=== PATIENT | female | born 2000 | race Two or more races ===

== ENCOUNTER 2023-09-09 09:10 | Emergency (ER) | payer OTHER ==
[~2023-09-09] VITALS: Ht 160 cm; Wt 46.7 kg
[2023-09-09] MEDS ORDERED: GUAIFENESIN 200 MG/10 ML BLIST.PACK PO STA (10:13)
[2023-09-09] MEDS ORDERED: CEFTRIAXONE SODIUM 1,000 MG VIAL IM STA (10:13)
[2023-09-09] MEDS ORDERED: CEFTRIAXONE SODIUM 1,000 MG VIAL ONE (10:17)
[2023-09-09] MEDS ORDERED: GUAIFENESIN/DEXTROMETHORPHAN 10ML BLIST.PACK PO ONE (10:17)
[2023-09-09] MEDS ORDERED: LIDOCAINE HCL 1% 10ML VIAL ONE (10:18)
[2023-09-09 11:12] LABS: HEMATOCRIT 46.7 % (36.0-45.00); HEMOGLOBIN 16.5 g/dL (12.0-15.00); MEAN CORPUSCULAR HEMOGLOBIN 32.3 pg (27.00-32.0); MEAN CORPUSCULAR HGB CONC 35.5 g/dl (32.0-36.0); PLATELET COUNT 194 K/uL (150-450); RED BLOOD COUNT 5.13 M/uL (4.00-6.00); RED CELL DISTRIBUTION WIDTH 12.7 % (11.5-14.5)
== END 2023-09-09 11:19 | disposition home or self-care (01) ==
LOC: ER 09:11
PROVIDERS: General Practice
DX: U07.1 COVID-19 (principal); R53.81 Other malaise; Z91.018 Allergy to other foods